=== PATIENT | male | born 1985 | race Caucasian/White ===

== ENCOUNTER 2024-10-24 15:00 | Outpatient (CLI) | payer OTHER, SELFPAY | END 2024-10-24 15:01 | disposition home or self-care (01) | LOC: AMB 10-28 13:51 | PROVIDERS: Visit Provider Family Medicine | DX: S09.90XA Unspecified injury of head, initial encounter (principal); R41.82 Altered mental status, unspecified; V23.49XA Other motorcycle driver injured in collision with car, pick-up truck or van in traffic accident, initial encounter; Y92.410 Unspecified street and highway as the place of occurrence of the external cause ==

== ENCOUNTER 2025-02-22 11:00 | Outpatient (RCR) | payer BC, MEDICAID, SELFPAY | END 2025-02-22 16:49 | disposition home or self-care (01) | PROVIDERS: PCP Physician Assistant Medical | DX: J96.01 Acute respiratory failure with hypoxia (principal); G93.40 Encephalopathy, unspecified; Z48.89 Encounter for other specified surgical aftercare; Z87.820 Personal history of traumatic brain injury; Z93.0 Tracheostomy status; Z93.1 Gastrostomy status; Z51.89 Encounter for other specified aftercare | CPT/HCPCS: 96125; 97110; 97112; 97116; 97129; 97130; 97140; 97162; 97165; 97530; 97535 ==